=== PATIENT | female | born 1990 | race Caucasian/White ===

== ENCOUNTER 2018-01-01 05:16 | Inpatient (IN) | payer OTHER ==
[2018-01-01] MEDS ORDERED: Oxytocin in LR* 20 UNITS/1,000 ML BAG IVPB SCH (07:00)
[2018-01-01] MEDS ORDERED: Penicillin G Potassium IV* 5,000,000 UNITS in NS 0.9% 100 ML* 100 ML IVPB ONE (07:30)
--- NOTE | 2018-01-01 07:37 | HP ---
General Information - General Information Maternal Age: 27 Grav: 1 Para: 0 SAB: 0 IEA: 0 Estimated Due Date: 01/13/18 Determined By: LMP Maternal Blood Type and Rh: O Positive - Results this Serology/RPR Result: Non-Reactive Rubella Result: Immune HBsAg Result: Negative HIV Result: Negative GBS Culture Result: Positive Past Medical History Delivery History: See Records Pertinent Past Medical History: Non-Contributory Pertinent Past Surgical History: None Pertinent Family History: Non-Contributory - Antepartal Records Antepartal Records: Reviewed, Uncomplicated Review of Systems Constitutional: Comfortable CV Complaint: No Respiratory: Shortness of Breath: No Genitourinary: Leaking Fluid Neurological: No Headache Movement: Normal Exam Allergies/Adverse Reactions: Allergies No Known Allergies Allergy (Verified 01/01/18 06:02) Lab Values - Entire Visit: Laboratory Tests 01/01/18 05:50 Vag Amniotic Fld Detect Positive - Measurements Height: 5 ft 2 in Weight: 130 lb Weight in lbs: 130.200070 Body Mass Index (BMI): 23.8 Pre- Weight: 107 lb Weight Gained This : 23 lbs and 0 ozs - Exam Breast: Breast Exam Deferred Extremities: No Edema Heart: Normal Rhythm/Heart Sounds HEENT: No Significant Findings Lungs: Clear Bilaterally Rectal: Rectal Exam Deferred Reflexes: DTR 2+ Targeted Exam Findings See L&D Outpatient Visit Provider Note for Findings: N/A Cervical Exam: 1cm Effacement: 70% Station: -1 Presenting Part: Vertex Membrane Status: SROM Amniotic Fluid Evaluation: Positive ROM Plus EFM Findings - External Monitor Findings Baseline Heart Rate: 125 External Monitor Findings: Accelerations Present, Variability Moderate Contractions: Irregular Assessment/Plan - Obstetrical Risk Factors Obstetrical Risk Factors: GBS Positive - Plan Plan: Induction, Antibiotic Prophylaxis
[2018-01-01 08:21] LABS: ABS Basophils 0 10^3/ul (0-0.2); ABS Eosinophils 0.1 10^3/ul (0-0.6); ABS Lymphocytes 1.2 10^3/ul (1.0-4.8); ABS Monocytes 0.7 10^3/ul (0-0.8); ABS Neutrophils 4.6 10^3/ul (1.5-7.7); ABS Nucleated RBC 0 10^3/ul; Eosinophil % 1.6 % (0-6); Hematocrit 37 % (35-47); Hemoglobin 13.2 g/dl (12.0-16.0); Lymphocyte % 18.5 % (25-47); Mean Corpuscular HGB Conc 35 g/dl (31-36); Mean Corpuscular Hemoglobin 33 pg (27-31); Mean Corpuscular Volume 94 fL (80-97); Mean Platelet Volume 9.2 um3 (7.4-10.4); Nucleated Red Blood Cells % 0.1; Platelet Count 182 10^3/ul (150-450); Red Blood Count 3.96 10^6/ul (4.00-5.40); Red Cell Distribution Width 13 % (10.5-15); White Blood Count 6.6 10^3/ul (3.5-10.8)
[2018-01-01] MEDS ORDERED: OBEPIDURAL* 250 ML EPIDURAL ONE (11:21)
[2018-01-01] MEDS: Penicillin G Potassium IV* 2,500,000 UNITS in NS 0.9% 100 ML* 100 ML IVPB SCH ×2 (12:21→12:22)
[2018-01-01] MEDS ORDERED: Sodium Citrate/Citric Acid* 15 ML UDC PO PRN (12:46)
[2018-01-01] MEDS ORDERED: Famotidine TAB* 20 MG PO PRN (12:46)
[2018-01-01] MEDS ORDERED: EPHEDrine (Pressors)* 50 MG/ML VIAL IV PUSH PRN ×2 (12:46)
[2018-01-01] MEDS ORDERED: Phenylephrine IV* 40 MCG/ML 10 ML SYRINGE IV PUSH PRN ×2 (12:46)
[2018-01-01] MEDS ORDERED: OBEPIDURAL* 250 ML EPIDURAL SCH (13:00)
[2018-01-01] MEDS ORDERED: Dibucaine 1% 28.35 GM TUBE PR PRN (15:40)
[2018-01-01] MEDS ORDERED: Glycerin ADULT SUPP PR PRN (15:40)
[2018-01-01] MEDS ORDERED: Witch Hazel PAD* JAR TOPICAL PRN (15:40)
[2018-01-01] MEDS ORDERED: Ibuprofen TAB* 600 MG PO PRN (15:40)
[2018-01-01] MEDS ORDERED: Acetaminophen TAB* 325 MG PO PRN (15:40)
[2018-01-01] MEDS ORDERED: Penicillin G Potassium IV* 2,500,000 UNITS in NS 0.9% 100 ML* 100 ML IVPB SCH (16:00)
[2018-01-01] MEDS ORDERED: Simethicone TAB* 80 MG TAB.CHEW PO SCH (17:30)
--- NOTE | 2018-01-01 20:15 | PTEDU ---
Patient Name: ALICJA BLANCO FRANCISLORRAINEALICJA selected video: Never Ever Shake a Baby to view on 01/01/2018 at 8:14:48 PM [id number]
[2018-01-01] MEDS: Docusate CAP* 100 MG PO SCH (21:18)
[2018-01-02 06:57] LABS: ABS Basophils 0.1 10^3/ul (0-0.2); ABS Eosinophils 0.2 10^3/ul (0-0.6); ABS Lymphocytes 2.1 10^3/ul (1.0-4.8); ABS Monocytes 0.9 10^3/ul (0-0.8); ABS Neutrophils 6.8 10^3/ul (1.5-7.7); ABS Nucleated RBC 0 10^3/ul; Eosinophil % 2.4 % (0-6); Hematocrit 35 % (35-47); Hemoglobin 12.3 g/dl (12.0-16.0); Lymphocyte % 20.5 % (25-47); Mean Corpuscular HGB Conc 35 g/dl (31-36); Mean Corpuscular Hemoglobin 34 pg (27-31); Mean Corpuscular Volume 96 fL (80-97); Mean Platelet Volume 9.7 um3 (7.4-10.4); Nucleated Red Blood Cells % 0.1; Platelet Count 157 10^3/ul (150-450); Red Blood Count 3.65 10^6/ul (4.00-5.40); Red Cell Distribution Width 12 % (10.5-15)
[2018-01-02] MEDS: Docusate CAP* 100 MG PO SCH ×3 (08:48→21:08)
[2018-01-02] MEDS ORDERED: Ferrous Gluconate TAB* 324 MG TAB PO SCH (09:00)
--- NOTE | 2018-01-02 19:41 | PTEDU ---
Patient Name: ALICJA BLANCO FRANCISLORRAINEALICJA selected video: Follow Me Mum: [facility] to view on 01/02/2018 at 7:40:10 PM from [id number]
[2018-01-03] MEDS ORDERED: Levothyroxine TAB* 75 MCG TAB PO SCH (06:00)
[2018-01-03] MEDS: Docusate CAP* 100 MG PO SCH ×2 (08:45→15:02)
[2018-01-03 08:55] VITALS: BP 113/57
== END 2018-01-03 16:13 | disposition home or self-care (01) | DRG 775 ==
LOC: MCHOBOUT 05:16 → MCHOB 06:25
PROVIDERS: ADMIT Obstetrics & Gynecology; ATTEND Obstetrics & Gynecology
PROC: 10E0XZZ Delivery of Products of Conception, External Approach (ICD-10-PCS; principal; 2018-01-01)
PROC: 0DQR0ZZ Repair Anal Sphincter, Open Approach (ICD-10-PCS; 2018-01-01)
PROC: 4A1HXCZ Monitoring of Products of Conception, Cardiac Rate, External Approach (ICD-10-PCS; 2018-01-01)
DX: O99.824 Streptococcus B carrier state complicating childbirth (principal); Z37.0 Single live birth; Z3A.38 38 weeks gestation of pregnancy; O70.20 Third degree perineal laceration during delivery, unspecified; O99.284 Endocrine, nutritional and metabolic diseases complicating childbirth; E07.9 Disorder of thyroid, unspecified
CPT/HCPCS: 36415; 84112; 85025; 86850; 86900; 86901; A9270-GY; J2540